=== PATIENT | female | born 1955 | race Caucasian/White ===

== ENCOUNTER 2024-08-29 12:52 | Outpatient (CLI) | payer OTHER, SELFPAY ==
--- NOTE | ~2024-08-29 | MMUS_ITS ---
EXAMINATION: US breast LT complete, MM diagnostic [place] BI w lisa HISTORY: Left breast mass TECHNIQUE: Additional 3-D tomosynthesis images of the breasts were performed and synthetic 2-D images were generated. CAD analysis was submitted and interpreted. High resolution complete left breast ult rasound was performed. COMPARISON: Outside mammogram dated 02/08/2024 BREAST PARENCHYMAL COMPOSITION: Not dense: There are scattered areas of fibroglandular density. FINDINGS: MAMMOGRAPHIC FINDINGS: The right breast is unremarkable without evidence for malignancy. There are benign calcifications. In the left breast in the upper outer quadrant anteriorly there is a spiculated mass partially obscured by fibroglandular tissue. There are no suspicious calcifications. ULTRASOUND: Limited left breast ultrasound: At 12:00, 6 cm from the nipple there is an irregular shaped hypoechoi c mass measuring 8 x 7 x 8 mm with internal vascularity and mixed posterior attenuation. This corresp onds to the mammographic finding. At 1:00, 12 cm from the nipple there is a normal appearing 6 mm int ramammary lymph node. No other masses are identified. IMPRESSION: 1. Irregular shaped 8mm left breast mass at 12:00, 6 cm from the nipple. 2. Ultrasound-guided left breast biopsy recommended. BI-RADS category 4, suspicious findings. Reviewed, dictated and finalized at location B. IMPRESSION: 1. Irregular shaped 8mm left breast mass at 12:00, 6 cm from the nipple. 2. Ultrasound-guided left breast biopsy recommended. BI-RADS category 4, suspicious findings.
== END 2024-08-29 12:53 | disposition home or self-care (01) ==
LOC: ANHIMG 12:53
PROVIDERS: Visit Provider Surgery
DX: N63.25 Unspecified lump in the left breast, overlapping quadrants (principal); R92.8 Other abnormal and inconclusive findings on diagnostic imaging of breast
CPT/HCPCS: 76641; 77062; 77066; G0279

== ENCOUNTER 2024-12-06 01:31 | Day surgery (SDC) | payer OTHER, SELFPAY ==
[2024-11-27 14:56] VITALS: BMI 35.2
--- NOTE | 2024-11-27 15:14 | PC.NURSE ---
Addendum entered by Norma Yanez RN 11/30/24 08:56: New instructions faxed to Celi [facility]ram with arrival time of 0630 on 12/06/24. Original Note: Report to the Outpatient Waiting Room, entrance under the green pavilion located off [facility], at time __08:30am on date _12/06/24 . Planned Procedure Time: __09:30am .? Time changes happen often and if your time is changed the preop area will call you the afternoon before. - You and your visitor will be asked to self-screen and do not enter if you have any COVID symptoms. Please call surgeon if you need to reschedule. - A mask is optional within the hospital at this time. Patients may have clear liquids (water, carbonated beverages, clear teas, apple juice) until 3 hours prior to surgery with a maximum of 20 ounces. - No food from midnight until time of surgery and no smoking. This includes no chewing gum, candy or mints. (0630am) Take only the following medications with a SIP of water on the morning of surgery: Amlodipine and Tylenol & albuteral inhaler if needed DO NOT STOP ANY OF YOUR OTHER PRESCRIPTION MEDICATIONS PRIOR TO SURGERY EXCEPT THE FOLLOWING Medications to discontinue per physician None Date to take last dose____None Please no make-up, nail irish, hairspray, perfume, deodorant, or body powder the day of surgery.? No jewelry (including any body piercings) or valuables the day of surgery, leave them at home.? Please take a shower or bath the night before, or the morning of, surgery with an antibacterial soap.? Wear comfortable, loose fitting clothing.? Children are encouraged to wear pajamas. - Jewelry must be removed prior to entering the operating room.? Rings and piercings that are not removed may be cut off. - The hospital will not accept responsibility for valuables.? - Please leave all valuables, including medications, at home the day of surgery. If you are going home after surgery, a licensed test driver must drive you home.? - NO public transportation without another adult if you receive anesthesia. - We recommend that an adult stay with you for 24 hours following discharge. - We also recommend that you do not drive, make important decision, drink alcoholic beverages, or take any drugs that were not prescribed by your health care provider for at least 24 hours after your discharge time. . Follow any additional instructions given to you from your surgeon. Telephone instructions given to _Celi Sue/Faxed/Left VM and asked if any additional questions and then verbalized understanding. Patient advised to call surgeon office or pre surgery nurse liaison [phone] if any additional questions.
--- NOTE | 2024-12-04 11:51 | PM.SD2 ---
Same Day Admit/Disch: HPI History of Present Illness Chief complaint: left breast cancer Narrative: Charito Cisneros is a 68 year old female who is an inmate at [facility] [employer] [place]. She had an abnormal mammogram through imaging associated with the correctional facility. This was suggestive of a left breast cancer. These images were difficult to access and were repeated at [facility] after seeing Dr. Ambrocio. They showed an 8 mm upper midline left breast lesion, 6 cm from the nipple. This was read as a BI-RADS 4 lesion. It was subsequently biopsied with ultrasound guidance. This showed adenocarcinoma. After thorough discussion and my office, patient is taken to surgery at this time for wire localization left breast lumpectomy, left axillary sentinel lymph node biopsy. The tumor is ER/GA positive. HER2 testing was negative. [facility] Past Medical History Medical History Hepatitis COPD (chronic obstructive pulmonary disease) Family History Family History Mother Breast cancer Heart disease Social History Social History Smoking status: Former smoker Tobacco type: cigarettes Alcohol intake: never Substance use: never Substance use type: does not use Do You Feel Safe in your Home?: Yes Lack of Transportation: No Lack of Food: Never True Current Housing: I Have Housing Concerned About Future Housing: No Difficulty Paying Gas/Electric Bills: No Difficulty Paying for Meds: No Currently Unemployed: No Education: High School Diploma/GED Difficulty w/ Childcare or Family Care: No Same Day Admit/Disch: Med Pre-admit Medications Home Medications ?Medication ?Instructions ?Recorded ?Confirmed ?Type amlodipine 10 mg tablet 10 mg PO DAILY 03/30/24 12/06/24 History famotidine 20 mg tablet 20 mg PO Q12H 03/30/24 12/06/24 History rosuvastatin 5 mg tablet 5 mg PO DAILY 03/30/24 12/06/24 History triamcinolone acetonide 0.1 % 1 applic topical BID 03/30/24 11/27/24 History topical cream albuterol 90 mcg-budesonide 80 2 inh inhalation DAILY PRN 11/27/24 12/06/24 History mcg/actuation HFA aerosol inhaler shortness of breath ibuprofen 600 mg tablet 600 mg PO Q6H PRN pain #14 tabs 12/06/24 Rx oxycodone-acetaminophen 5 mg-325 0.5 - 1 tablet PO Q4H PRN pain #10 12/06/24 Rx mg tablet (Percocet) tabs Review of Systems Review of Systems All systems reviewed & are unremarkable except as noted in HPI and below (HPI) Exam Const: General: comfortable, no acute distress, alert, awake and overweight Orientation/consciousness: patient oriented x3 and No confusion HENMT: Head: normocephalic and atraumatic Mouth: Yes Normal oral and palatal mucosa present Eyes: Conjunctivae: conjunctivae normal Pupils: Equal, round and reactive pupils present EOM: EOMs intact bilaterally Neck: Neck: normal visual inspection, no lymphadenopathy and nontender Chest: Breast/axilla inspection: normal inspection of the breasts and normal inspection of the axillae Breast/axilla palpation: normal palpation of the breasts and normal palpation of the axillae Resp: Effort & Inspection: normal respiratory effort Auscultation: clear to auscultation bilaterally Cardio: Rate: regular rate Rhythm: regular rhythm Heart sounds: no gallops, no murmurs and no rubs GI: Inspection: non-distended GI Palp: Yes Soft to palpation, No Tenderness to palpation present (GI), No Hepatomegaly present and No Splenomegaly present Skin: Lesions: no lesions Rashes: no rashes Neuro: General: no focal motor deficits and CN's II-XI intact bilaterally Cranial nerves: Yes Equal, round and reactive pupils present, Yes Bilaterally intact EOM present, Yes facial symmetry and Yes Midline tongue present Speech: normal speech Motor exam (neuro): 5/5 motor strength present throughout and Motor abnormalities not present Extrem: General: no clubbing, cyanosis or edema and edema Psych: Affect: normal affect Thought process: Normal thought process present Insight: Good insight present (Psych) DS: Summary Time Spent with Patient Time attestation: Total time spent providing and/or coordinating discharge services: DS: Admitting Diagnosis Discharge Date December 06, 2024 Admitting Diagnosis 0.8 cm left breast cancer in the upper midline, ER GA positive. Plan is to proceed with left breast lumpectomy after wire localization as well as left axillary sentinel lymph node biopsy. Patient is not inclined to proceed with postoperative radiation therapy. She has seen Medical Oncology prior to surgery. The procedure, risks, benefits, and alternatives have been discussed. All questions were answered. She understands and wishes to proceed. Hypertension Asthma Psoriasis DS: Discharge Diagnosis Discharge Diagnosis (1) Cancer of left breast: Qualifiers: Breast location: upper inner quadrant of breast Estrogen receptor status: positive Patient sex: female Qualified Code(s): C50.212 - Malignant neoplasm of upper-inner quadrant of left female breast; Z17.0 - Estrogen receptor positive status [ER+] Code(s): C50.912 - Malignant neoplasm of unspecified site of left female breast Status: Chronic Assessment and Plan: Wire localization, left breast lumpectomy with left axillary sentinel lymph node biopsy performed 12/06/[address] Neely Discharge Plan Discharge Patient Disposition: Home, Self-Care Discharge Instructions: Discharge Instruction Sheet for [place] Node Biopsy (Possible Axillary Node Dissection) Patients Dr. Neely, Dr. Maier, Dr. [facility] [address] [place] [address] [place] [address]. [id number] 1.) Keep wounds clean and dry. 2.) No vigorous activity or carrying with left arm. May use arm to comb hair, eat, write, etc. 3.) Do not apply creams or ointments unless directed to do so by your surgeon. 4.) Ambulate (walk) for exercise at least 3 times per day. 5.) Contact your surgeon?s office if you have excessive and persistent pain, swelling, bleeding, or drainage through the dressing, redness or red streaks around the wound, heat or warmth at the site of the incision, or fever of more than 101 degrees. 6.) Resume all home medications. Patient to be given pain medication prescription prior to discharge if needed. 7.) Please be aware that the surgeon will likely inject a ?blue dye? to identify the sentinel lymph node during the procedure. This dye may turn your urine blue or green for 24 hours and skin a blue color that will fade over a period of time (several weeks). This is expected and of no concern. 8.) Please allow 5 business days for biopsy results. Dr. Neely/Dr. Maier?s office will call with results. 9.) Nutrition: Start out by drinking fluids and increase your diet as tolerated. If you experience nausea, try dry toast and crackers and 7-UP. If nausea or vomiting persists, contact your surgeon?s office. Patient Language: Finnish Stand Alone Forms: General Discharge Instructions Follow-up/Referrals: Hoang Neely MD [Physician] - 3 Weeks Discharge Medications: New oxycodone-acetaminophen [Percocet] 5-325 mg tablet 0.5 - 1 tablet PO Q4H PRN (Reason: pain) Qty: 10 0RF ibuprofen 600 mg tablet 600 mg PO Q6H PRN (Reason: pain) Qty: 14 0RF Continued amlodipine 10 mg tablet 10 mg PO DAILY famotidine 20 mg tablet 20 mg PO Q12H rosuvastatin 5 mg tablet 5 mg PO DAILY triamcinolone acetonide 0.1 % cream 1 applic topical BID albuterol-budesonide 90-80 mcg/actuation HFA aerosol inhaler 2 inh inhalation DAILY PRN (Reason: shortness of breath) Discontinued ibuprofen 600 mg tablet 600 mg PO Q6H PRN (Reason: pain) Other Ambulatory Orders: Prothrombin Time INR (Routine) Timeframe: 20241127 Location: Determined by Patient Ordered By: Syd Akers Partial Thromboplastin Time (Routine) Timeframe: 20241127 Location: Determined by Patient Ordered By: Syd Akers
[2024-12-06] VITALS (8 sets, daily range): BP systolic 123–159; BP diastolic 64–92; PULSE 63–83; RESP 14–20; TEMP 36.4–36.7; O2SAT 91–100
--- NOTE | ~2024-12-06 | MM_ITS ---
EXAMINATION: MM needle loc LT MAMMOGRAPHY SPECIMEN DATE: 12/06/2024 11:05 ANALYSIS LEAD INDICATION: Abnormal left breast mammogram. TECHNIQUE: The procedure for a mammography-guided needle localization was discussed with the patient' s. Risks and benefits were detailed, including risks of bleeding, infection, pain, and nondiagnostic specimen. The patient verbalized understanding and agreed to proceed. The time out was performed to verify the patient's name, date of , and site of procedure. The p atient was placed in the left breast compression, and the skin overlying the left breast was prepped in usual fashion. Utilizing mammography guidance, a needle was advanced into the left breast. Two c onfirmatory films were obtained. The patient tolerated procedure without immediate complication. A specimen radiograph was performed and contains the tissue marker. FINDINGS: Two view confirmatory films of the left breast demonstrate a the wire adjacent to the tissu e marker. The tissue marker is contained within the surgical specimen.] IMPRESSION: 1. Successful mammography-guided left breast needle localization. Reviewed, dictated and finalized at location B. YSIS LEAD IMPRESSION: 1. Successful mammography-guided left breast needle localization.
--- NOTE | ~2024-12-06 | NM_ITS ---
NM sentinel node inject only 12/06/2024 11:06 HEAD WELL PULLER INDICATION: Left breast cancer TECHNIQUE: 1 Millicuries Tc 99m filtered sulfur colloid was injected and 4 aliquots in the anterior u pper outer quadrant of the breast near the areola. No images were obtained. IMPRESSION: 1: Status post left breast sentinel lymph node radiopharmaceutical injection. Reviewed, dictated and finalized at location B. WELL PULLER
--- NOTE | ~2024-12-06 | XR_ITS ---
XR chest 1V portable Ordering provider: Hoang Neely MD History: 68 years Female with . PREOP TESTING . Comparison: None. FINDINGS: MEDIASTINUM: The cardiac silhouette is not enlarged. LUNGS: No infiltrates, effusions or pneumothorax. OTHER: No free air under the diaphragm. Degenerative changes of the spine. IMPRESSION: No acute cardiopulmonary pathology. Reviewed, dictated and finalized at location A. [employer]
[2024-12-06] MEDS: ACETAMINOPHEN 500 MG TABLET 1000 MG PO (07:00)
[2024-12-06] MEDS: LACTATED RINGERS 1,000 ML 30 ML IV CONT ×2 (07:00→12:29)
[2024-12-06] MEDS: KETOROLAC 15 MG/ML VIAL (*BKC) IV PUSH (07:00)
--- NOTE | 2024-12-06 07:35 | ECG_ITS ---
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
[2024-12-06 07:52] LABS: Basophils Percent Auto 0.5 % (0.2-1.2); Eosinophils Absolute Auto 0.2 K/mm3 (0-0.3); Eosinophils Percent Auto 2.1 % (0-4.4); Hematocrit 45.4 % (37.0-47.0); Hemoglobin 14.9 g/dL (12.0-15.0); Immature Granulocyte Absolute 0.02 K/mm3 (0.00-0.031); Immature Granulocyte Percent A 0.3 % (0-0.5); Lymphocytes Percent Auto 22.5 % (18.3-44.2); Mean Corpuscular HGB Conc 32.8 g/dl (32-36); Mean Corpuscular Hemoglobin 31.6 pg (26-34); Mean Corpuscular Volume 96.4 fl (80-100); Mean Platelet Volume 11.4 fl (7.4-10.4); Monocytes Absolute Auto 0.9 K/mm3 (0.1-0.6); Monocytes Percent Auto 12.5 % (2.6-8.5); Neutrophils Absolute Auto 4.7 K/mm3 (1.3-6.7); Neutrophils Percent Auto 62.1 % (45.5-73.1); Platelet Count Result 242 k/mm3 (150-375); Red Blood Count 4.71 M/mm3 (4.2-5.4); Red Cell Distribution Width 13.2 % (11.5-14.5); White Blood Count 7.5 K/mm3 (4.5-10.0)
[2024-12-06 07:58] LABS: Anion Gap 9 mmol/L (4-12); Blood Urea Nitrogen 25 mg/dL (7-17); Calcium 9.2 mg/dL (8.4-10.2); Carbon Dioxide 25 mmol/L (22-30); Chloride 107 mmol/L (98-107); Estimated CRCL calculation 70 ml/min; Estimated Glomerular Filt Rate > 60; Glucose 102 mg/dL (65-110); Potassium 4.1 mmol/L (3.4-5.0); Sodium 141 mmol/L (137-145)
[2024-12-06 08:03] LABS: INR 0.9; Prothrombin Time 12.4 Seconds (11.1-14.7)
[2024-12-06 08:04] LABS: Partial Thromboplastin Time 24.3 Seconds (22.3-36.8)
--- NOTE | 2024-12-06 09:22 | P.PNAN_ITS ---
Anes - Initial Pre Proc Eval Procedure: Operation Date: 12/06/24 09:30 Proposed Procedures p Needle Localization Left Breast Lumpectomy, with Ultrasound And/Or Mammogram Guided, - Hoang Neely MD s Left Axillary [place] Node Biopsy - Hoang Neely MD Date/Time: 12/06/24 09:22 Surgeon: Hoang Neely MD Pre Op Diagnosis: left breast cancer Patient Data Age: 68 Gender: F Height: 1.75 m Weight: 108.1 kg Last Vital Signs Temp 36.4 C 12/06/24 08:00 Pulse 66 12/06/24 08:00 Resp 16 12/06/24 08:00 BP 151/92 H 12/06/24 08:00 Pulse Ox 95 12/06/24 08:00 O2 Del Method Room Air 12/06/24 08:00 Allergies Allergy/AdvReac Type Severity Reaction Status Date / Time No Known Allergies Allergy Verified 11/27/24 12:56 Home Medications ?Medication ?Instructions ?Recorded ?Confirmed ?Type amlodipine 10 mg tablet 10 mg PO DAILY 03/30/24 12/06/24 History famotidine 20 mg tablet 20 mg PO Q12H 03/30/24 12/06/24 History ibuprofen 600 mg tablet 600 mg PO Q6H PRN pain 03/30/24 12/06/24 History rosuvastatin 5 mg tablet 5 mg PO DAILY 03/30/24 12/06/24 History triamcinolone acetonide 0.1 % 1 applic topical BID 03/30/24 11/27/24 History topical cream albuterol 90 mcg-budesonide 80 2 inh inhalation DAILY PRN 11/27/24 12/06/24 History mcg/actuation HFA aerosol inhaler shortness of breath Laboratory Tests 12/06/24 12/06/24 07:38 07:39 WBC 7.5 K/mm3 (4.5-10.0) RBC 4.71 M/mm3 (4.2-5.4) Hgb 14.9 g/dL (12.0-15.0) Hct 45.4 % (37.0-47.0) MCV 96.4 fl (80-100) MCH 31.6 pg (26-34) MCHC 32.8 g/dl (32-36) RDW 13.2 % (11.5-14.5) Plt Count 242 k/mm3 (150-375) MPV 11.4 H fl (7.4-10.4) Immature Gran % (Auto) 0.3 % (0-0.5) Neut % (Auto) 62.1 % (45.5-73.1) Lymph % (Auto) 22.5 % (18.3-44.2) Alger % (Auto) 12.5 H % (2.6-8.5) Eos % (Auto) 2.1 % (0-4.4) Baso % (Auto) 0.5 % (0.2-1.2) Lymph # (Auto) 1.70 K/mm3 (0.9-3.2) Alger # (Auto) 0.9 H K/mm3 (0.1-0.6) Eos # (Auto) 0.2 K/mm3 (0-0.3) Baso # (Auto) 0.0 K/mm3 (0.0-0.1) Abs Immat Gran (auto) 0.02 K/mm3 (0.00-0.031) Absolute Neuts (auto) 4.7 K/mm3 (1.3-6.7) Absolute Nucleated RBC 0.000 K/mm3 (0.0-0.012) Nucleated RBC % 0.0 % (0.0-0.2) PT 12.4 Seconds (11.1-14.7) INR 0.9 APTT 24.3 Seconds (22.3-36.8) Sodium 141 mmol/L (137-145) Potassium 4.1 mmol/L (3.4-5.0) Chloride 107 mmol/L (98-107) Carbon Dioxide 25 mmol/L (22-30) Anion Gap 9 mmol/L (4-12) BUN 25 H mg/dL (7-17) Creatinine 0.85 mg/dL (0.7-1.0) Estim Creat Clear Calc 70 ml/min Estimated GFR > 60 (59 - ) Glucose 102 mg/dL (65-110) Calcium 9.2 mg/dL (8.4-10.2) Patient hx anesthesia problems: none Family hx anesthesia problems: none Results Review: All pre-operative results and documents have been reviewed as part of the pre-operative evaluation. COUNT INCLUDES THE [facility] Past Medical History Medical History Hepatitis COPD (chronic obstructive pulmonary disease) Family History Family History Mother Breast cancer Heart disease Social History Social History Smoking status: Former smoker Tobacco type: cigarettes Alcohol intake: never Substance use: never Substance use type: does not use Do You Feel Safe in your Home?: Yes Lack of Transportation: No Lack of Food: Never True Current Housing: I Have Housing Concerned About Future Housing: No Difficulty Paying Gas/Electric Bills: No Difficulty Paying for Meds: No Currently Unemployed: No Education: High School Diploma/GED Difficulty w/ Childcare or Family Care: No Anes - Eval Final PreProcedure Day of Procedure 12/06/24 09:22 Patient weight: obese Heart: regular rate and rhythm Lungs: clear to auscultation Airway: Mallampati scale class II Neurological: alert and oriented Last oral intake: >/= 8 hours ASA classification: III Emergent: no Anesthetic plan: proceed Anesthesia type and monitoring: general LMA and standard monitoring Results Review: All pre-operative results and documents have been reviewed as part of the pre- operative evaluation. Informed Consent: The patient's anesthetic plan and its attendant risks and benefits were d iscussed with the patient/family/POA. Questions were solicited and answers provided to the satisfaction of the patient/family/POA.
--- NOTE | 2024-12-06 09:51 | WPDHPUPDATE1 ---
History and Physical Update Update Date/Time: 12/06/24 09:51 History and Physical has been reviewed, including an updated exam of the patient. There are NO changes in the patient's condition. Risks, benefits, and alternatives have been discussed and questions answered. Patient agrees to proceed with procedure.
[2024-12-06] MEDS: ceFAZolin 2 GM/D5W 50 ML 2 GM/50 ML BAG IVPB (10:16)
[2024-12-06] MEDS: BUPIVACAINE/EPINEPHRINE 0.5% 30 ML VIAL INFILTRATE (10:43)
[2024-12-06] MEDS: ISOSULFAN BLUE 1% INJ 5 ML VIAL SUB-Q (10:44)
--- NOTE | 2024-12-06 11:13 | SUR.OPER ---
[place] lymph node # 1 & 2 sent with ЕЛЕНА Simon and received in pathology by Natasha
--- NOTE | 2024-12-06 12:02 | SUR.OPER ---
Fresh Breast specimens sent with ЕЛЕНА Simon and received in pathology by Julio C
--- NOTE | 2024-12-06 12:29 | P.OP_ITS ---
Procedure Note - Detailed Date of Procedure 12/06/24 Pre-op Diagnosis left breast cancer Post-op Diagnosis Same Procedure Performed Wire localization left breast lumpectomy, left axillary sentinel lymph node biopsy Surgeon Hoang Neely MD Fund Manager [employer] Anesthesia General Indications Patient had a mammographic abnormality. She had ultrasound-guided biopsy which showed this to be adenocarcinoma. The size of the lesion was 0.8 cm by ultrasound. After discussion in the office, the patient is taken to surgery now for wire localization left breast lumpectomy with left axillary sentinel lymph node biopsy. Findings Two sentinel lymph nodes were identified. Specimen mammogram showed that the marker lesion was contained in the specimen. Description of Procedure Patient was taken to surgery after wire localization had been done in x-ray. She was induced into general anesthesia. The left breast left axilla and left arm were prepped and draped. The left arm was mobile and was fully in the operative field. We injected Lymphazurin blue under the nipple and then provided gentle breast massage to facilitate movement of the dye through the lymphatics. The Neoprobe was then used to generally locate the sentinel lymph node. Incision was made in the left axilla. Dissection was carried out through the subcutaneous fat. We continued this dissection medially into the axillary fat. The Neoprobe was used intermittently during the dissection and in the axillary fat to help direct our dissection. We found the initial sentinel lymph node in the posterior breast just below the axillary neurovascular structures and near the subscapularis muscle. The initial sentinel lymph node had strong dye staining and high isotope emission. It was carefully dissected free from the surrounding structures and removed. Clips were used for lymphatic channels. Cautery was used for vascular hemostasis. We then used the Neoprobe again and found another area a very high isotope emission. This was a little more superficial and caudal from the initial sentinel lymph node. We found this lymph node and carefully dissected it free and similar manner. It also had dye staining and very high isotope emission. This was sent as sentinel lymph node 2. I then palpated in the axilla and could not find any enlarged or nodular structures concerning for additional lymph nodes to be removed. We checked several times with the Neoprobe and found no other lymph nodes that had high isotope emission. We followed dye stained lymphatic channels and also found no additional lymph nodes. We checked and made sure that hemostasis was satisfactory. The left axilla was then closed in layers with interrupted 3-0 Monocryl suture. Subcuticular interrupted 3-0 Monocryl skin stitches were placed. A running 4-0 Monocryl skin suture was placed. The axillary wound was then quarantined. We turned our attention to the left breast. An incision was made just above the areola and below the exit point of the wire. Incision was in the upper midline. Dissection was carried down to the localizing wire. Wire was then grasped and pulled through the skin and out this wound. The hook of the wire was able to be seen. I excised the surrounding breast tissue trying to remove the area of the lesion with a margin of normal breast tissue. The hook of the wire stayed in the breast specimen. As the breast specimen was being excised, we placed different color suture to denote the location of the various margins. Once about 3 suture had been placed, the specimen was then completely excised. We continued with different color suture and marked all the margins. We then sent the breast specimen to be mammogram. Mammogram of the specimen confirmed that the marker lesion and the lesion itself or in the specimen. I then proceeded with margin re-excision lumpectomy. We excised the 6 different margins of the original breast excision cavity. We labeled each margin appropr iately and put a suture on the inner aspect of each margin. The 6 margin re- excision specimen were all sent to pathology labeled appropriately. We then used cautery to ensure meticulous hemostasis of the lumpectomy wound. The lumpectomy wound was then closed in layers with 3-0 Monocryl interrupted suture. Subcuticular interrupted 3-0 Monocryl skin stitches were placed. 4-0 Monocryl running subcuticular skin suture was used to finally close the breast incision. Each wound was dressed with Exofin surgical adhesive. Patient was then awakened, extubated, and taken to recovery in good condition. Sponge and needle counts were correct x2. Estimated Blood Loss -10 Drains No Packing No Pathology Yes (To left axillary sentinel lymph nodes, 1 lumpectomy specimen, 6 margin re- excision specimen) Complications None Condition Stable Disposition PACU [facility] Billing Surgery - Charge Forward: Surgery Billing (Wire localization left breast lumpectomy, left axillary sentinel lymph node biopsy)
[2024-12-06] MEDS: oxyCODONE HCL (*CRX) 5 MG TAB IR PO (13:39)
== END 2024-12-06 14:10 | disposition home or self-care (01) ==
PROVIDERS: Visit Provider Surgery
PROC: (CPT 19301; principal; 2024-12-06 09:30)
PROC: (CPT 19301; 2024-12-06 09:30)
DX: C50.212 Malignant neoplasm of upper-inner quadrant of left female breast (principal); Z17.0 Estrogen receptor positive status [ER+]; G89.18 Other acute postprocedural pain; J44.9 Chronic obstructive pulmonary disease, unspecified; E66.9 Obesity, unspecified; Z68.35 Body mass index [BMI] 35.0-35.9, adult; Z79.51 Long term (current) use of inhaled steroids; Z79.1 Long term (current) use of non-steroidal anti-inflammatories (NSAID); Z87.891 Personal history of nicotine dependence; Z80.3 Family history of malignant neoplasm of breast; Z82.49 Family history of ischemic heart disease and other diseases of the circulatory system
CPT/HCPCS: 19301; 38525; 19281; 36415; 38792; 71045; 76098; 80048; 85025; 85610; 85730; 88307; 93005; A9270; A9520; C1713; C1769; J0690; J1100; J1885; J2250; J2405; J2704; J3010; J7120